=== PATIENT | female | born 1970 | race Caucasian/White ===

== ENCOUNTER 2019-02-12 03:03 | Observation (INO) | payer SELFPAY ==
[2019-02-12 04:26] VITALS: BMI 41.3
[2019-02-12] MEDS ORDERED: Ondansetron PF 4 MG/2 ML Vial IVP PRN (04:48)
[2019-02-12] MEDS ORDERED: Acetaminophen 325 MG TAB PO PRN ×2 (04:48→11:18)
[2019-02-12] MEDS ORDERED: Ondansetron ODT 4 MG TAB SL PRN (04:48)
[2019-02-12 05:27] LABS: Troponin I Less than 0.010 ng/mL (< 0.028)
[2019-02-12] MEDS ORDERED: FLU VACC QS2019-20(6MOS UP)/PF 60 MCG/0.5 ML SYRINGE IM ONE (06:00)
[2019-02-12 07:50] LABS: Troponin I Less than 0.010 ng/mL (< 0.028)
[2019-02-12 08:25] VITALS: TEMP 97.7
[2019-02-12] MEDS ORDERED: HumaLOG 300 UNITS/3 ML VIAL SC PRN ×2 (11:18)
[2019-02-12] MEDS ORDERED: Senokot S 8.6-50 MG TAB PO PRN (11:18)
[2019-02-12] MEDS ORDERED: Guaifenesin DM 100-10/5 ML UDCUP PO PRN (11:18)
[2019-02-12] MEDS ORDERED: Nitroglycerin 0.4 MG TAB (25 Tab Bottle) PO PRN (11:18)
[2019-02-12] MEDS ORDERED: Dextrose 50% Abboject 50 ML SYRINGE SLOW IVP PRN (11:18)
[2019-02-12] MEDS ORDERED: Dextrose 5% in Water 1,000 ML IV PRN (11:18)
[2019-02-12] MEDS ORDERED: Bisacodyl 10 MG SUPP PR PRN (11:18)
[2019-02-12 15:27] VITALS: BP 133/66
--- NOTE | 2019-02-12 15:36 | NM ---
EXAM: Cardiac SPECT HISTORY: Chest pain PROTOCOL: Stress only, single isotope TYPE OF STRESS: Pharmacologic stress with adenosine was monitored and interpreted by Dr. Leigh RADIOPHARMACEUTICAL: 30 mCi technetium 99m-sestamibi injected intravenously FINDINGS: Homogeneous tracer distribution is seen in the myocardial segments on the post stress images. Gated SPECT LVEF: 62% Wall motion exam: Normal IMPRESSION: Normal post stress myocardial perfusion scan.
--- NOTE | 2019-02-12 18:02 | SS ---
DATE OF ADMISSION: 02/12/2019 DATE OF DISCHARGE: 02/12/2019 REASON FOR ADMISSION: Chest pain. HISTORY OF PRESENTING ILLNESS: The patient gives history of waking up in the middle of the night with complaints of back pain which radiated to the anterior chest wall. This was worse on deep breathing. No complaints of shortness of breath, palpitations, PND, or orthopnea. No fever. No cough or expectoration. She states she has had a stress test done 11 years back which was negative as far as she knows. No complaints of exertional chest pain. Currently, the chest pain is resolved. PAST MEDICAL AND SURGICAL HISTORY: History of TIA from November 23, 2018, with no residual deficits now, diabetes mellitus type 2, history of renal stones with ureteral stents placed in the past with removal, umbilical hernia repair, C- section x1, hysterectomy. CURRENT MEDICATIONS: The patient is on. 1. Levemir 17 units p.o. q.p.m. 2. Metformin 500 mg p.o. twice daily. 3. Glimepiride 2 mg p.o. daily. 4. Aspirin 81 mg p.o. daily. ALLERGIES: ALLERGIC TO CODEINE, HYDROCODONE, AND VICODIN. PERSONAL HISTORY: Does not abuse alcohol or drugs. No history of smoking. FAMILY HISTORY: Mother at the age of 65. She has had history of ND. Father is living. He has history of hypertension, CKD, and atrial fibrillation. CODE STATUS: Full. REVIEW OF SYSTEMS: CONSTITUTIONAL: Negative for weight loss or gain, ability to conduct usual activities. SKIN: Negative for rash, itching. EYES: Negative for double vision, pain. ENT/MOUTH: Negative for nose bleeding, neck stiffness, pain, tenderness. CARDIOVASCULAR: Negative for palpitations, dyspnea on exertion, orthopnea. RESPIRATORY: Negative for shortness of breath, wheezing, cough, hemoptysis, fever or night sweats. GASTROINTESTINAL: Negative for poor appetite, abdominal pain, heartburn, nausea , vomiting, constipation, or diarrhea. GENITOURINARY: Negative for urgency, frequency, dysuria, nocturia. MUSCULOSKELETAL: Negative for pain, swelling. NEUROLOGIC/PSYCHIATRIC: Negative for anxiety, depression. ALLERGY/IMMUNOLOGIC: Negative for skin rash, bleeding tendency. PHYSICAL EXAMINATION: GENERAL: The patient is a 48-year-old female, who is currently not in any acute distress. VITAL SIGNS: Blood pressure 144/68, pulse 78 per minute, respiratory rate 18 per minute, temperature 97.9 degrees Fahrenheit, saturating 94% on room air. NECK: Supple. No elevated JVD. HEENT: Eyes; extraocular muscles intact. Pupils reacting to light. Oral cavity, mucous membranes are moist. No exudates or congestion. CARDIOVASCULAR: S1-S2 heard. Regular rhythm. RESPIRATORY: Air entry 1+ bilateral. No rales or rhonchi. ABDOMEN: Soft. Bowel sounds heard. No tenderness, rigidity, or guarding. EXTREMITIES: No peripheral edema or calf tenderness. VASCULAR SYSTEM: Peripheral pulses 2+ bilateral. No ischemic ulcers or gangrene. CENTRAL NERVOUS SYSTEM: No gross focal deficits noted. The patient is alert, awake, oriented well. PSYCHIATRIC: The patient's mood is euthymic. No hallucinations or delusions. LABORATORY DATA: EKG done shows normal sinus rhythm at 88 beats per minute. Chest x-ray done shows no acute cardiopulmonary abnormalities. Troponin x3 is negative. BNP less than 10. Albumin 4.0. Serum glucose 298. Liver enzymes are within normal limits. Electrolytes stable. BUN is 19, creatinine 0.8. D-dimer 0.28. H and H 13 and 40, platelet count 245 with 50% neutrophils. White count 6.5, MCV 84. She has had a nuclear stress test done, which shows ejection fraction of 62%, normal wall motion and normal post stress myocardial perfusion scan. CLINICAL IMPRESSION AND PLAN: The patient will be shortly discharged home as she has had a complete cardiac workup including three sets of troponin being negative and a nuclear stress test was negative. She has remained hemodynamically stable. Her chest pain is completely resolved. She needs to continue her home medication as before. Lifestyle modifications including dietary counseling were done to lose weight. The patient's BMI is around 41. She weighs around 233 pounds and is 5 feet 3 inches. The patient will require outpatient lipid profile and to follow up with her primary care physician, Ms. Yuliya Cobos, nurse practitioner in 1 week. Job ID: [id number] [facility]
[2019-02-12] MEDS ORDERED: ADENOSINE 60 MG/20 ML VIAL ONE (19:50)
[2019-02-12] MEDS ORDERED: Famotidine 20 MG TAB PO SCH (21:00)
[2019-02-12] MEDS ORDERED: Insulin Glargine 17 UNITS in Pre-Filled Syringe 1 EACH SC SCH (21:00)
[2019-02-12] MEDS ORDERED: Metoprolol Tartrate 25 MG TAB PO SCH (21:00)
[2019-02-12] MEDS ORDERED: INSULIN DETEMIR 17 UNIT SC SCH (21:00)
[2019-02-13] MEDS ORDERED: Glimepiride 4 MG TAB PO SCH (07:30)
[2019-02-13] MEDS ORDERED: Aspirin 325 mg Enteric Coated Tablet PO SCH (09:00)
[2019-02-13] MEDS ORDERED: Enoxaparin Sodium 40 MG/0.4 ML SYRINGE SC SCH (09:00)
--- NOTE | 2019-02-15 12:45 | EKG ---
Test Reason : Blood Pressure : / mmHG Vent. Rate : 088 BPM Atrial Rate : 088 BPM P-R Int : 170 ms QRS Dur : 080 ms QT Int : 388 ms P-R-T Axes : 041 015 048 degrees QTc Int : 469 ms Normal sinus rhythm Nonspecific ST and T wave abnormality Prolonged QT Abnormal ECG Confirmed by BETSY GUZMAN D.O. ([id number]), senior editor MARCELLE ETIENNE ([id number]) on 02/15/2019 12:44:54 PM Referred By: Confirmed By:BETSY GUZMAN D.O.
== END 2019-02-12 17:32 | disposition home or self-care (01) ==
LOC: ERS 03:03 → 2SW 03:20
PROVIDERS: ADMIT Internal Medicine; ATTEND Internal Medicine
DX: R07.89 Other chest pain (principal); E11.9 Type 2 diabetes mellitus without complications; Z86.73 Personal history of transient ischemic attack (TIA), and cerebral infarction without residual deficits; Z79.4 Long term (current) use of insulin; Z79.82 Long term (current) use of aspirin; Z88.5 Allergy status to narcotic agent; Z88.8 Allergy status to other drugs, medicaments and biological substances
CPT/HCPCS: 36415; 36416; 78452; 93005; 93017; A9500; G0378; J0153; J1815

== ENCOUNTER 2020-03-14 08:52 | Emergency (ER) | payer SELFPAY ==
[2020-03-14] MEDS ORDERED: Bicillin LA 2.4 MILL.UNITS/4 ML SYRINGE ONE (10:57)
[2020-03-14 21:29] LABS: SARS-CoV-2 MS2 Positive; SARS-CoV-2 N Gene Negative; SARS-CoV-2 S Gene Negative; SARS-CoV-2 by NAA Not Detected (NotDetected); SARS-CoV-2 orf1ab Negative
== END 2020-03-14 11:30 | disposition home or self-care (01) ==
LOC: ERS 08:52
DX: J02.0 Streptococcal pharyngitis (principal); Z20.828 Contact with and (suspected) exposure to other viral communicable diseases; E11.9 Type 2 diabetes mellitus without complications; Z86.73 Personal history of transient ischemic attack (TIA), and cerebral infarction without residual deficits; Z79.4 Long term (current) use of insulin; Z79.82 Long term (current) use of aspirin
CPT/HCPCS: 87430; 87635; 96372; 99283; J0561; U0003

== ENCOUNTER 2020-11-30 23:17 | Observation (INO) | payer SELFPAY ==
[2020-12-01] MEDS ORDERED: hydrALAZINE 20 MG/ML VIAL SLOW IVP PRN (08:44)
[2020-12-01] MEDS ORDERED: HYDROcodone/Acetaminophen 5/325 mg Tablet PO PRN (08:44)
[2020-12-01] MEDS ORDERED: Acetaminophen 325 MG TAB PO PRN (08:44)
[2020-12-01] MEDS ORDERED: Senokot S 8.6-50 MG TAB PO PRN (08:44)
[2020-12-01] MEDS ORDERED: Calcium Carbonate 500 MG ChewTAB PO PRN (08:44)
[2020-12-01] MEDS ORDERED: Fioricet 325/50/40 mg Tablet PO PRN (08:47)
[2020-12-01] MEDS ORDERED: HumaLOG 300 UNITS/3 ML VIAL SC PRN (08:48)
[2020-12-01] MEDS ORDERED: Dextrose 50% Abboject 50 ML SYRINGE SLOW IVP PRN (08:48)
[2020-12-01] MEDS ORDERED: Dextrose 5% in Water 1,000 ML IV PRN (08:48)
[2020-12-01] MEDS ORDERED: Ondansetron PF 4 MG/2 ML Vial IVP PRN (08:50)
[2020-12-01] MEDS ORDERED: Aspirin 81 mg Enteric Coated Tablet PO SCH (09:00)
[2020-12-01] MEDS ORDERED: Fioricet 325/50/40 mg Tablet PO SCH (09:00)
[2020-12-01] MEDS ORDERED: Meclizine HCl 25 MG TAB PO SCH (09:30)
[2020-12-01] MEDS: Meclizine HCl 25 MG TAB PO SCH ×2 (09:48→16:57)
[2020-12-01] MEDS ORDERED: Fioricet 325/50/40 mg Tablet ONE (09:53)
[2020-12-01] MEDS ORDERED: Meclizine HCl 25 MG TAB ONE ×4 (09:53→17:18)
[2020-12-01] MEDS ORDERED: Aspirin Chewable 81 MG TAB ONE (09:53)
[2020-12-01 14:35] VITALS: BP 120/79
[2020-12-01] MEDS ORDERED: Atorvastatin Calcium 40 MG TAB PO SCH (21:00)
== END 2020-12-01 18:26 | disposition home or self-care (01) ==
LOC: ERS 23:17 → ERHOLD 12-01 01:07 → 2SE 12-01 17:51
PROVIDERS: ADMIT Student in an Organized Health Care Education/Training Program; ATTEND Family Medicine
DX: R42 Dizziness and giddiness (principal); S00.03XA Contusion of scalp, initial encounter; E11.9 Type 2 diabetes mellitus without complications; Z86.16 Personal history of COVID-19; Z86.73 Personal history of transient ischemic attack (TIA), and cerebral infarction without residual deficits; Z88.5 Allergy status to narcotic agent; Z88.8 Allergy status to other drugs, medicaments and biological substances; Z79.82 Long term (current) use of aspirin; Z79.4 Long term (current) use of insulin; W19.XXXA Unspecified fall, initial encounter
CPT/HCPCS: 70551; 99285; G0378

== ENCOUNTER 2022-08-31 15:25 | Emergency (ER) | payer SELFPAY ==
[2022-08-31] MEDS ORDERED: Ketorolac Tromethamine 30 MG/ML VIAL ONE (16:43)
[2022-08-31] MEDS ORDERED: Ondansetron PF 4 MG/2 ML Vial ONE (16:43)
[2022-08-31 17:02] LABS: Bilirubin Negative (Negative); Blood, Urine Negative (Negative); Clarity Clear (Clear); Glucose, Urine (Dipstick) Greater than 1000 mg/dL (Negative); Ketone, Urine Negative (Negative); Leukocyte Negative Leu/uL (Negative); Nitrite Negative (Negative); Protein, Urine (Dipstick) Negative (Neg-Trace); Specific Gravity, Urine 1.039 (1.002-1.036); Urobilinogen Normal mg/dL (Less than 2); pH, Urine 5.5 (5.0-9.0)
[2022-08-31] MEDS ORDERED: Morphine 2 MG/ML VIAL ONE (17:55)
[2022-08-31] MEDS ORDERED: Morphine 4 MG/ML VIAL ONE (17:55)
== END 2022-08-31 19:00 | disposition home or self-care (01) ==
LOC: ERS 15:25
DX: M54.50 Low back pain, unspecified (principal); E11.9 Type 2 diabetes mellitus without complications; Z79.82 Long term (current) use of aspirin; Z86.73 Personal history of transient ischemic attack (TIA), and cerebral infarction without residual deficits
CPT/HCPCS: 81003; 96372; 96374; 96375; J1885; J2270; J2272; J2405

== ENCOUNTER 2024-11-30 11:48 | Emergency (ER) | payer SELFPAY | END 2024-11-30 13:09 | disposition home or self-care (01) | LOC: ERS 11:48 | DX: M65.4 Radial styloid tenosynovitis [de Quervain] (principal); M25.532 Pain in left wrist; E11.9 Type 2 diabetes mellitus without complications; Z86.73 Personal history of transient ischemic attack (TIA), and cerebral infarction without residual deficits | CPT/HCPCS: 29125 ==